=== PATIENT | female | born 1985 | race Two or more races ===

== ENCOUNTER 2024-08-04 16:29 | Emergency (ER) | payer MEDICAID ==
[~2024-08-04] VITALS: Ht 162.6 cm; Wt 55.0 kg
--- OUTSIDE RECORDS SUMMARY | 2024-08-04 19:29 | XMS ---
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 No recent Security Events currently on file CRITERIA MET - [facility] - 2 Visits in 30 Days - [facility] - 3 Facilities in 90 Days [facility] [place] Clinic/Center: Federally Qualified 08/15/2023-[facility] ([facility]) PHONE: Unknown -, [facility] - Dentist: Enterprise Application Architect Casey Tavarez PHONE: [phone] [facility] Current PHONE: [phone] FR[place] FERRARO Counselor: Professional Current PHONE: [phone] [place] has no Care Guidelines for this patient. Niko VISIT COUNT (12 MO.) 1 [facility] NOTE: Visits indicate total known visits. ED/UCC VISIT TRACKING (12 MO.) 08/04/2024 16:30 [facility] [place] TYPE: Emergency COMPLAINT: - COLD SYMPTOMS 07/09/2024 18:13 Bessie Casarez [place] TYPE: Emergency COMPLAINT: - NAUSEA,VOMITING DIAGNOSES: - Viral intestinal infection, unspecified [facility] DIAGNOSES: - Other psychoactive substance abuse, uncomplicated - Somnolence - Overdose (Accidental) 08/11/2023 15:04 [facility] NEFF TYPE: Emergency COMPLAINT: - ETOH ALOC INPATIENT VISIT TRACKING (12 MO.) No inpatient visits to display in this time frame [id number]
[2024-08-04 19:47] LABS: BILIRUBIN, URINE NEGATIVE (negative); BLOOD/HGB, URINE NEGATIVE (Negative); KETONE, URINE NEGATIVE (Negative); LEUK ESTERASE, URINE NEGATIVE (negative); NITRITE, URINE NEGATIVE (negative)
[2024-08-04 20:00] LABS: AMPHETAMINES, URINE POSITIVE (NEGATIVE); BARBITURATES, URINE NEGATIVE (NEGATIVE); BENZODIAZEPINE, URINE NEGATIVE (NEGATIVE); BUPRENORPHINE, URINE NEGATIVE (NEGATIVE); CANNABINOID, URINE POSITIVE (NEGATIVE); COCAINE, URINE NEGATIVE (NEGATIVE); ECSTASY, URINE NEGATIVE (NEGATIVE); FENTANYL, URINE NEGATIVE (NEGATIVE); METHADONE, URINE NEGATIVE (NEGATIVE); OPIATES, URINE NEGATIVE (NEGATIVE); OXYCODONE, URINE NEGATIVE (NEGATIVE); PHENCYCLIDINE, URINE NEGATIVE (NEGATIVE)
[2024-08-04] MEDS ORDERED: OLANZapine 10 MG TAB PO ONE (20:00)
[2024-08-04 20:10] LABS: EOSINOPHILS 6.4 % (0-6); HEMATOCRIT 31.9 % (35.0-50.0); HEMOGLOBIN 10.5 g/dL (12.0-18.0); LYMPHOCYTES 22.8 % (24-44); MCH 28.6 (27-36); MCHC 32.9 g/dl (30-36); MONOCYTES 8.7 % (0-12); NEUTROPHILS 61.1 % (39-80); PLATELET COUNT 324 K/uL (140-440); RBC 3.66 M/ul (4.3-5.7); RDW 16.3 (10.5-15.0)
[2024-08-04 20:28] LABS: ACETAMINOPHEN 0 ug/mL (10-30); ALBUMIN 3.1 g/dL (3.4-5.0); ALBUMIN/GLOBULIN RATIO 0.86 (1.1-2.4); ALCOHOL, MEDICAL <3 ng/dL (<3); ALKALINE PHOSPHATASE 65 U/L (46-116); ALT (SGPT) 19 U/L (14-59); ANION GAP 12.7 (7-21); AST (SGOT) 16 U/L (15-37); BILIRUBIN, TOTAL 0.2 ng/dL (0.2-1.0); BUN/CREATININE RATIO 16.07 (6.0-28.6); CALCIUM 8.2 mg/dL (8.5-10.1); CARBON DIOXIDE 25 mmol/L (21-32); CHLORIDE 107 mmol/L (98-107); CREATININE, SERUM 0.56 mg/dL (0.55-1.02); GLOMERULAR FILTRATION RATE,EST 119 mL/min (>60); POTASSIUM 3.7 mmol/L (3.5-5.1); PROTEIN, TOTAL 6.7 g/dL (6.4-8.2); SALICYLATE 1.4 mg/dL (2.8-20.0); TSH, 3RD GENERATION 1.296 uIU/mL (0.358-3.740); UREA NITROGEN 9 mg/dL (7-18)
[2024-08-04] MEDS ORDERED: LORazepam 2 MG/ML VIAL IM ONE (22:45)
[2024-08-04] MEDS ORDERED: HALOPERIDOL LACTATE 5 MG/ML VIAL IM ONE (22:45)
[2024-08-04] MEDS ORDERED: diphenhydrAMINE HCL 50 MG/ML VIAL IM ONE (22:45)
--- NOTE | 2024-08-05 20:20 | EKG ---
[facility] [address] [place], [place] [address] Signed Sinus rhythm with short SC Otherwise normal ECG No previous ECGs available Confirmed by Maddi Mata MD ([id number]) on 08/05/2024 8:20:43 PM Electronically Signed By: MADDI MATA MD 08/05/24 2020 PATIENT NAME: ELSIE WAN Electrocardiogram DATE OF : 85 PHYSICIAN: MADDI MATA MD REPORT #: [id number] REPORT IS CONFIDENTIAL AND NOT TO BE RELEASED WITHOUT AUTHORIZATION
[2024-08-06 14:27] VITALS: BP 136/90
== END 2024-08-06 14:27 | disposition home or self-care (01) ==
LOC: ED 16:29
PROVIDERS: Internal Medicine
DX: F22 Delusional disorders (principal); F15.90 Other stimulant use, unspecified, uncomplicated; Z88.0 Allergy status to penicillin
CPT/HCPCS: 36415; 80053; 80307; 81003; 84443; 84703; 85025; 93005; 93010; 96372; 99285; A9270; G0480; J1200; J1630; J2060